=== PATIENT | male | born 1985 | race Caucasian/White ===

== ENCOUNTER 2017-01-05 22:30 | Emergency (ER) | payer OTHER ==
[~2017-01-05] VITALS: Ht 177.8 cm; Wt 97.9 kg
[~2017-01-05 22:30] MED LIST: CEPH-443 PO; CLIN-73 PO; HYDR-3498 PO; IBUP-1542 PO; MECL25TA2 PO; ONDA4TAB35 PO
[2017-01-05 22:40] VITALS: Ht 177.8 cm; Wt 97.9 kg
[2017-01-06] MEDS ORDERED: AZITHROMYCIN 250 MG TAB PO ONE (00:30)
[2017-01-06] MEDS ORDERED: CEFTRIAXONE 250 MG INJ IM ONE (00:30)
--- NOTE | 2017-01-06 01:10 | ERD ---
ER Documentation Chief Complaint Chief Complaint penile yellow green discharges HPI This is a 31-year-old male presents to the ER with yellow green penile discharge that started 3 days ago. Patient also complains of urinary frequency and dysuria. He admits to some fever which is tactile, denies chills. Patient is currently sexually active with multiple partners and sometimes uses condoms. ROS 12 point review of systems was done, all negative except per HPI. Medications Home Meds Active Scripts Ciprofloxacin Hcl* (Ciprofloxacin Hcl*) 500 Mg Tablet, 500 MG PO BID for 7 Days , TAB Prov:MULUGETA BARRERA 01/06/17 Ondansetron Hcl* (Zofran* ODT) 4 mg -ODT Tab.disper, 4 MG PO Q6 Y for NAUSEA AND /OR VOMITING, #10 TAB Prov:NATALIE MUIR MD 05/17/15 Meclizine Hcl* (Antivert*) 25 Mg Tablet, 25 MG PO Q6 Y for dizziness, #20 TAB Prov:NATALIE MUIR MD 05/17/15 Hydrocodone Bit-Acetaminophen* ([place]*) 5-325 Mg Tab, 1 TAB PO Q6 Y for PAIN, # 20 TAB Prov:DELIA MONTERO NP 03/19/15 Cephalexin* (Keflex*) 500 Mg Capsule, 500 MG PO QID for 10 Days, CAP Prov:DELIA MONTERO TURBINE MECHANIC 03/19/15 Ibuprofen* (Motrin*) 600 Mg Tab, 600 MG PO Q6H Y for PAIN AND OR ELEVATED TEMP, #30 TAB Prov:DELIA MONTERO TURBINE MECHANIC 03/19/15 Clindamycin Hcl* (Clindamycin Hcl*) 300 Mg Capsule, 300 MG PO TID for 10 Days, CAP Prov:DELIA MONTERO TURBINE MECHANIC 03/19/15 Reported Medications [none] Unknown Strength No Conflict Check 03/19/15 Allergies Allergies: Coded Allergies: No Known Allergy (Unverified , 01/06/17) PMhx/Soc History of Surgery: Yes (left first finger surgery as a child.) Anesthesia Reaction: No Hx Neurological Disorder: No Hx Respiratory Disorders: Yes (asthma) Hx Cardiac Disorders: No Hx Psychiatric Problems: No Hx Miscellaneous Medical Probl: Yes (prediabetes) Hx Alcohol Use: No Hx Substance Use: Yes (methamphetamine, heroin) Hx Tobacco Use: No Smoking Status: Current every day smoker Physical Exam Vitals Vital Signs Date Time Temp Pulse Resp B/P Pulse Ox O2 Delivery O2 Flow Rate FiO2 01/05/17 22:40 97.3 99 20 138/70 99 Physical Exam GENERAL: The patient is well developed and appropriate for usual state of health , in no apparent distress. HEENT: Atraumatic. CHEST: Clear to auscultation bilaterally. There are no rales, wheezes or rhonchi. HEART: Regular rate and rhythm. No murmurs, clicks, rubs or gallops. ABDOMEN: Soft, nontender and nondistended. Good bowel sounds. No rebound or guarding. No gross peritonitis. No gross organomegaly or masses. No [place] sign or McBurney point tenderness. : yellow penile discharge. NEURO: Alert and oriented. SKIN: There is no apparent rash Results 24 hrs Laboratory Tests Test 01/06/17 00:15 01/06/17 00:45 Chlamydia trachomatis RNA (TMA) NOT DETECTED Chlamydia/GC Comment SEE NOTE Neisseria gonorrhoeae RNA (TMA) DETECTED Urine Color YELLOW Urine Clarity CLOUDY Urine pH 5.0 Urine Specific [place] 1.027 Urine Ketones NEGATIVEmg/dL Urine Nitrite NEGATIVEmg/dL Urine Bilirubin NEGATIVEmg/dL Urine Urobilinogen 1+mg/dL Urine Leukocyte Esterase 3+Wero/ul Urine Microscopic RBC 32/HPF Urine Microscopic WBC > 182/HPF Urine Bacteria FEW/HPF Urine Mucus FEW/HPF Urine Hemoglobin 1+mg/dL Urine Glucose NEGATIVEmg/dL Urine Total Protein 1+mg/dl Current Medications Medications (Trade) Dose Ordered Sig/Esa Route PRN Reason Start Time Stop Time Status Last Admin Dose Admin Ceftriaxone Sodium (Rocephin) 250 mg ONCE ONCE IM 01/06/17 00:30 01/06/17 00:31 DC 01/06/17 00:43 Azithromycin (Zithromax) 1,000 mg ONCE ONCE PO 01/06/17 00:30 01/06/17 00:31 DC 01/06/17 00:43 Procedures/MDM This is a 31-year-old male presents to the ER with yellow nasal discharge. Patient treated prophylactically for gonorrhea and chlamydia, he was also found to have a urinary tract infection [facility] Suspicion for Juwan's syndrome is low. He does not have any joint pain or trouble seeing. Patient was advised to use condoms with sexual intercourse. He needs to follow- up with his primary care doctor within 1-2 days or return to ER sooner if symptoms worsen. Medical decision making sure with the patient understands and agrees with plan. Departure Diagnosis: Primary Impression: Penile discharge Condition: Stable Patient Instructions: Understanding STDs Additional Instructions: Call your primary care doctor TOMORROW for an appointment during the next 1-2 days.See the doctor sooner or return here if your condition worsens before your appointment time. MULUGETA BARRERA Jan 06, 2017 01:10
--- NOTE | 2017-01-06 01:10 | ERD ---
ER Documentation Chief Complaint Chief Complaint penile yellow green discharges HPI This is a 31-year-old male presents to the ER with yellow green penile discharge that started 3 days ago. Patient also complains of urinary frequency and dysuria. He admits to some fever which is tactile, denies chills. Patient is currently sexually active with multiple partners and sometimes uses condoms. ROS 12 point review of systems was done, all negative except per HPI. Medications Home Meds Active Scripts Ciprofloxacin Hcl* (Ciprofloxacin Hcl*) 500 Mg Tablet, 500 MG PO BID for 7 Days , TAB Prov:MULUGETA BARRERA 01/06/17 Ondansetron Hcl* (Zofran* ODT) 4 mg -ODT Tab.disper, 4 MG PO Q6 Y for NAUSEA AND /OR VOMITING, #10 TAB Prov:NATALIE MUIR MD 05/17/15 Meclizine Hcl* (Antivert*) 25 Mg Tablet, 25 MG PO Q6 Y for dizziness, #20 TAB Prov:NATALIE MUIR MD 05/17/15 Hydrocodone Bit-Acetaminophen* ([place]*) 5-325 Mg Tab, 1 TAB PO Q6 Y for PAIN, # 20 TAB Prov:DELIA MONTERO NP 03/19/15 Cephalexin* (Keflex*) 500 Mg Capsule, 500 MG PO QID for 10 Days, CAP Prov:DELIA MONTERO WELDER 2ND SHIFT 03/19/15 Ibuprofen* (Motrin*) 600 Mg Tab, 600 MG PO Q6H Y for PAIN AND OR ELEVATED TEMP, #30 TAB Prov:DELIA MONTERO WELDER 2ND SHIFT 03/19/15 Clindamycin Hcl* (Clindamycin Hcl*) 300 Mg Capsule, 300 MG PO TID for 10 Days, CAP Prov:DELIA MONTERO WELDER 2ND SHIFT 03/19/15 Reported Medications [none] Unknown Strength No Conflict Check 03/19/15 Allergies Allergies: Coded Allergies: No Known Allergy (Unverified , 01/06/17) PMhx/Soc History of Surgery: Yes (left first finger surgery as a child.) Anesthesia Reaction: No Hx Neurological Disorder: No Hx Respiratory Disorders: Yes (asthma) Hx Cardiac Disorders: No Hx Psychiatric Problems: No Hx Miscellaneous Medical Probl: Yes (prediabetes) Hx Alcohol Use: No Hx Substance Use: Yes (methamphetamine, heroin) Hx Tobacco Use: No Smoking Status: Current every day smoker Physical Exam Vitals Vital Signs Date Time Temp Pulse Resp B/P Pulse Ox O2 Delivery O2 Flow Rate FiO2 01/05/17 22:40 97.3 99 20 138/70 99 Physical Exam GENERAL: The patient is well developed and appropriate for usual state of health , in no apparent distress. HEENT: Atraumatic. CHEST: Clear to auscultation bilaterally. There are no rales, wheezes or rhonchi. HEART: Regular rate and rhythm. No murmurs, clicks, rubs or gallops. ABDOMEN: Soft, nontender and nondistended. Good bowel sounds. No rebound or guarding. No gross peritonitis. No gross organomegaly or masses. No [place] sign or McBurney point tenderness. : yellow penile discharge. NEURO: Alert and oriented. SKIN: There is no apparent rash Results 24 hrs Laboratory Tests Test 01/06/17 00:15 01/06/17 00:45 Chlamydia trachomatis RNA (TMA) NOT DETECTED Chlamydia/GC Comment SEE NOTE Neisseria gonorrhoeae RNA (TMA) DETECTED Urine Color YELLOW Urine Clarity CLOUDY Urine pH 5.0 Urine Specific [place] 1.027 Urine Ketones NEGATIVEmg/dL Urine Nitrite NEGATIVEmg/dL Urine Bilirubin NEGATIVEmg/dL Urine Urobilinogen 1+mg/dL Urine Leukocyte Esterase 3+Wero/ul Urine Microscopic RBC 32/HPF Urine Microscopic WBC > 182/HPF Urine Bacteria FEW/HPF Urine Mucus FEW/HPF Urine Hemoglobin 1+mg/dL Urine Glucose NEGATIVEmg/dL Urine Total Protein 1+mg/dl Current Medications Medications (Trade) Dose Ordered Sig/Esa Route PRN Reason Start Time Stop Time Status Last Admin Dose Admin Ceftriaxone Sodium (Rocephin) 250 mg ONCE ONCE IM 01/06/17 00:30 01/06/17 00:31 DC 01/06/17 00:43 Azithromycin (Zithromax) 1,000 mg ONCE ONCE PO 01/06/17 00:30 01/06/17 00:31 DC 01/06/17 00:43 Procedures/MDM This is a 31-year-old male presents to the ER with yellow nasal discharge. Patient treated prophylactically for gonorrhea and chlamydia, he was also found to have a urinary tract infection [facility] Suspicion for Juwan's syndrome is low. He does not have any joint pain or trouble seeing. Patient was advised to use condoms with sexual intercourse. He needs to follow- up with his primary care doctor within 1-2 days or return to ER sooner if symptoms worsen. Medical decision making sure with the patient understands and agrees with plan. Departure Diagnosis: Primary Impression: Penile discharge Condition: Stable Patient Instructions: Understanding STDs Additional Instructions: Call your primary care doctor TOMORROW for an appointment during the next 1-2 days.See the doctor sooner or return here if your condition worsens before your appointment time. MULUGETA BARRERA Jan 06, 2017 01:10
--- NOTE | 2017-01-06 01:10 | ERD ---
ER Documentation Chief Complaint Chief Complaint penile yellow green discharges HPI This is a 31-year-old male presents to the ER with yellow green penile discharge that started 3 days ago. Patient also complains of urinary frequency and dysuria. He admits to some fever which is tactile, denies chills. Patient is currently sexually active with multiple partners and sometimes uses condoms. ROS 12 point review of systems was done, all negative except per HPI. Medications Home Meds Active Scripts Ciprofloxacin Hcl* (Ciprofloxacin Hcl*) 500 Mg Tablet, 500 MG PO BID for 7 Days , TAB Prov:MULUGETA BARRERA 01/06/17 Ondansetron Hcl* (Zofran* ODT) 4 mg -ODT Tab.disper, 4 MG PO Q6 Y for NAUSEA AND /OR VOMITING, #10 TAB Prov:NATALIE MUIR MD 05/17/15 Meclizine Hcl* (Antivert*) 25 Mg Tablet, 25 MG PO Q6 Y for dizziness, #20 TAB Prov:NATALIE MUIR MD 05/17/15 Hydrocodone Bit-Acetaminophen* ([place]*) 5-325 Mg Tab, 1 TAB PO Q6 Y for PAIN, # 20 TAB Prov:DELIA MONTERO NP 03/19/15 Cephalexin* (Keflex*) 500 Mg Capsule, 500 MG PO QID for 10 Days, CAP Prov:DELIA MONTERO INFORMATION SYSTEMS AUDITOR 03/19/15 Ibuprofen* (Motrin*) 600 Mg Tab, 600 MG PO Q6H Y for PAIN AND OR ELEVATED TEMP, #30 TAB Prov:DELIA MONTERO INFORMATION SYSTEMS AUDITOR 03/19/15 Clindamycin Hcl* (Clindamycin Hcl*) 300 Mg Capsule, 300 MG PO TID for 10 Days, CAP Prov:DELIA MONTERO INFORMATION SYSTEMS AUDITOR 03/19/15 Reported Medications [none] Unknown Strength No Conflict Check 03/19/15 Allergies Allergies: Coded Allergies: No Known Allergy (Unverified , 01/06/17) PMhx/Soc History of Surgery: Yes (left first finger surgery as a child.) Anesthesia Reaction: No Hx Neurological Disorder: No Hx Respiratory Disorders: Yes (asthma) Hx Cardiac Disorders: No Hx Psychiatric Problems: No Hx Miscellaneous Medical Probl: Yes (prediabetes) Hx Alcohol Use: No Hx Substance Use: Yes (methamphetamine, heroin) Hx Tobacco Use: No Smoking Status: Current every day smoker Physical Exam Vitals Vital Signs Date Time Temp Pulse Resp B/P Pulse Ox O2 Delivery O2 Flow Rate FiO2 01/05/17 22:40 97.3 99 20 138/70 99 Physical Exam GENERAL: The patient is well developed and appropriate for usual state of health , in no apparent distress. HEENT: Atraumatic. CHEST: Clear to auscultation bilaterally. There are no rales, wheezes or rhonchi. HEART: Regular rate and rhythm. No murmurs, clicks, rubs or gallops. ABDOMEN: Soft, nontender and nondistended. Good bowel sounds. No rebound or guarding. No gross peritonitis. No gross organomegaly or masses. No [place] sign or McBurney point tenderness. : yellow penile discharge. NEURO: Alert and oriented. SKIN: There is no apparent rash Results 24 hrs Laboratory Tests Test 01/06/17 00:15 01/06/17 00:45 Chlamydia trachomatis RNA (TMA) NOT DETECTED Chlamydia/GC Comment SEE NOTE Neisseria gonorrhoeae RNA (TMA) DETECTED Urine Color YELLOW Urine Clarity CLOUDY Urine pH 5.0 Urine Specific [place] 1.027 Urine Ketones NEGATIVEmg/dL Urine Nitrite NEGATIVEmg/dL Urine Bilirubin NEGATIVEmg/dL Urine Urobilinogen 1+mg/dL Urine Leukocyte Esterase 3+Wero/ul Urine Microscopic RBC 32/HPF Urine Microscopic WBC > 182/HPF Urine Bacteria FEW/HPF Urine Mucus FEW/HPF Urine Hemoglobin 1+mg/dL Urine Glucose NEGATIVEmg/dL Urine Total Protein 1+mg/dl Current Medications Medications (Trade) Dose Ordered Sig/Esa Route PRN Reason Start Time Stop Time Status Last Admin Dose Admin Ceftriaxone Sodium (Rocephin) 250 mg ONCE ONCE IM 01/06/17 00:30 01/06/17 00:31 DC 01/06/17 00:43 Azithromycin (Zithromax) 1,000 mg ONCE ONCE PO 01/06/17 00:30 01/06/17 00:31 DC 01/06/17 00:43 Procedures/MDM This is a 31-year-old male presents to the ER with yellow nasal discharge. Patient treated prophylactically for gonorrhea and chlamydia, he was also found to have a urinary tract infection [facility] Suspicion for Juwan's syndrome is low. He does not have any joint pain or trouble seeing. Patient was advised to use condoms with sexual intercourse. He needs to follow- up with his primary care doctor within 1-2 days or return to ER sooner if symptoms worsen. Medical decision making sure with the patient understands and agrees with plan. Departure Diagnosis: Primary Impression: Penile discharge Condition: Stable Patient Instructions: Understanding STDs Additional Instructions: Call your primary care doctor TOMORROW for an appointment during the next 1-2 days.See the doctor sooner or return here if your condition worsens before your appointment time. MULUGETA BARRERA Jan 06, 2017 01:10
[2017-01-06] MEDS ORDERED: CIPR500T4 PO (02:05)
== END 2017-01-06 02:15 | disposition home or self-care (01) ==
LOC: FTE 22:30
DX: R36.9 Urethral discharge, unspecified (principal); J45.909 Unspecified asthma, uncomplicated; F17.210 Nicotine dependence, cigarettes, uncomplicated
CPT/HCPCS: 81001; 87591; 96372; J0696; Z7502; Z7610

== ENCOUNTER 2017-03-21 23:43 | Emergency (ER) | END 2017-03-22 05:17 | disposition home or self-care (01) ==

== ENCOUNTER 2017-05-27 04:03 | Emergency (ER) | END 2017-05-27 06:17 | disposition home or self-care (01) ==

== ENCOUNTER 2017-05-29 12:28 | Emergency (ER) | END 2017-05-29 13:24 | disposition home or self-care (01) ==

== ENCOUNTER 2017-10-27 18:23 | Emergency (ER) | END 2017-10-27 20:59 | disposition left against medical advice (07) ==

== ENCOUNTER 2017-12-07 05:12 | Emergency (ER) | END 2017-12-07 07:37 | disposition home or self-care (01) ==